=== PATIENT | male | born 1950 | race Caucasian/White ===

== ENCOUNTER 2018-10-16 11:24 | Inpatient (IN) | payer OTHER ==
[~2018-10-16] VITALS: Ht 182.9 cm; Wt 93.0 kg
--- NOTE | ~2018-10-16 | D ---
[facility] [place] [address] DISCHARGE SUMMARY Name: NIURKA REHMAN Room #: 525B-B DIS IN M.R.#: [id number] Admission: 10/16/18 ������������������ Attend Phys: Malcolm Lee DO Discharge: 10/28/18 ������������������ Date of : 54 Report #: [id number] THIS REPORT FOR: //name// CC: Malcolm Lee [facility] unknown DATE OF SERVICE: 10/28/2018 INPATIENT PSYCHIATRIC DISCHARGE SUMMARY ATTENDING PHYSICIAN: Malcolm Lee DO. PAID INTERNSHIP: Tk Corrigan M.D. DISCHARGE DIAGNOSES: Major neurocognitive disorder, unspecified etiology, without behavioral disturbance; schizophrenia, much improved. DISCHARGE PLAN: Discharging to the [facility] for memory care. DIET: Diet, I believe, is regular. ACTIVITY LEVEL: As tolerated; however, PT and OT were encouraged for the patient as he did make significant gains. DISCHARGE MEDICATIONS: The patient's discharge medications are as follows: Morphine sulfate extended release 15 mg p.o. b.i.d., Oxycodone IR 5 mg p.o. 4 times a day p.r.n. pain level 6/10, haloperidol 7.5 mg p.o. b.i.d. for psychosis, Lasix 20 mg p.o. daily for edema primarily, docusate 100 mg p.o. b.i.d. for bowel motility, cyanocobalamin 100 mcg p.o. daily for supplementation and folic acid 1 mg p.o. daily. The patient can take Systane eye drops 1 drop ophthalmic every 6 hours p.r.n. for dry eyes and senna 8.6 mg p.o. b.i.d. for bowel motility. REASON FOR ADMISSION: Refusal of cares, worsening psychosis, concern for dementia. HOSPITAL COURSE: The patient was admitted to the Geriatric Psychiatry Unit. His [facility] Mental Status Examination was in the low teens. The patient had difficulty performing some ADLs. He clearly had a superior intelligence. However, he currently is lacking insight into a number of his care needs and even how he was obstructing his getting care. The patient was already under the care of this guardianship. The guardian, Chicho, who is a finance attorney in the area wanted us to find a new placement. The patient was accepted at the [facility] there in the memory care. [address] [address] DISCHARGE SUMMARY Name: NIURKA REHMAN Room #: 525B-B [facility] IN M.R.#: [id number] Admission: 10/16/18 ������������������ Attend Phys: Malclom Lee DO Discharge: 10/28/18 ������������������ Date of : 54 Report #: [id number] LABORATORY DATA: Laboratories this admission, CBC was grossly normal, except on 10/28/2018, H and H of 11.4 and 34.7, white count 6.7 and platelet count 238,000. BMP within normal limits, except magnesium slightly high at 2.6 on 10/28/2018. Anion gap low at 6. Estimated GFR is 97. Toxicology showed positive for benzodiazepines and opiates, which was expected. Urinalysis was grossly normal with 1+ protein, few bacterial cells. His urine creatinine was 130.3 and urine total protein 40.17, which is high. The patient does have some evidence of chronic renal disease. PHYSICAL EXAMINATION: VITAL SIGNS: On the day of discharge, temperature 36.9, pulse 78, respirations 16 and BP 125/77. His weight supposedly is 92.99 kilos. GENERAL: Well-developed male seated in the chair, tries to avoid engaging in activities. MENTAL STATUS EXAMINATION: This is a well-developed, well-nourished, disheveled male, appearing at least stated age. Attention fair. Concentration fair. Speech normal rate and normal tone. Thought process linear and goal oriented. Thought content focused on getting his needs met. No psychomotor retardation. No psychomotor agitation. Denied SI, HI. Some helplessness and hopelessness. Insight limited. Judgment limited. Fund of knowledge above average. PROGNOSIS: Prognosis for this patient is guarded given the neurodegenerative disease on top of schizophrenia history. This prognosis was discussed with the guardian. ��������������������������������������������� ���������������������������������������� By: ��������������������������������������������� [id number] Malcolm Lee, DO /nt
[2018-10-16 11:25] VITALS: BP 141/90
--- NOTE | 2018-10-16 11:30 | NUR ---
PT CHATS EASILY ABOUT UNRELATED TOPICS. PT ASKED THIS PANEL ASSEMBLER IF HE COULD PLACE A CHARACTER REFRENCE IN HIS ER CHART. PT ALSO SPEAKS ABOUT CALLING THE AUTHORITIES ON A HOSPITAL LAST TIME HE WAS IN BECAUSE THEY TESTED HIM FOR STDS AND THAT IT WAS ILLEGAL. THOUGHTS ARE ORGANIZED
[2018-10-16] MEDS ORDERED: MIRALAX17 GM PO (13:08)
[2018-10-16] MEDS ORDERED: MILK OF MA400 MG/5 M PO (13:08)
[2018-10-16] MEDS ORDERED: MS CONTIN15 MG PO (13:09)
[2018-10-16] MEDS ORDERED: SENNA8.6 MG PO ×2 (13:11→21:20)
[2018-10-16] MEDS ORDERED: OXYCODONE HCL10 MG PO (13:11)
[2018-10-16 13:12] LABS: HEMATOCRIT 40.2 % (42.0-52.0); HEMOGLOBIN 13.4 gm/dL (14.0-18.0); MCH 28.3 pg (26.0-34.0); MCHC 33.3 g/dL (28.0-37.0); MCV 84.9 fL (80.0-100.0); RBC 4.74 mil/uL (4.50-6.00); RDW 13.8 % (10.5-14.5); WBC 7.6 thou/uL (4.0-11.0)
[2018-10-16] MEDS ORDERED: SYSTANE ULTRA 010 ML OPHTHALMIC (13:12)
[2018-10-16] MEDS ORDERED: VALIUM5 MG PO (13:13)
[2018-10-16 13:14] LABS: URINE BLOOD NEGATIVE (Negative); URINE CLARITY CLEAR; URINE COLOR YELLOW; URINE GLUCOSE-RANDOM* NEGATIVE (Negative); URINE KETONES NEGATIVE (Negative); URINE LEUKOCYTES-REFLEX NEGATIVE (Negative); URINE NITRITE-REFLEX NEGATIVE (Negative); URINE PROTEIN (DIPSTICK) 1+ (Negative)
[2018-10-16 13:19] LABS: ICTOTEST (BILI CONFIRMATORY) Negative (Negative); URINE BILIRUBIN NEGATIVE (Negative)
[2018-10-16 13:20] LABS: CALCIUM 9.1 mg/dL (8.5-10.1); CREATININE 0.9 mg/dL (0.7-1.3); POTASSIUM 4.3 mmol/L (3.5-5.1)
[2018-10-16 13:21] LABS: AMP/METHAMP Negative (Negative); BARBITURATES Negative (Negative); BENZODIAZEPINES POSITIVE (Negative); COCAINE Negative (Negative); METHADONE Negative (Negative); OPIATES POSITIVE (Negative); PCP Negative (Negative)
[2018-10-16 13:25] LABS: SQUAMOUS 4-10 Moderate /LPF (0-3)
[2018-10-16 13:26] LABS: BACTERIA-REFLEX 1-9 Few /HPF (None Seen); CASTS None Seen /LPF (None Seen); CRYSTALS None Seen /LPF (None Seen); URINE RBC 0-2 Rare /HPF (0-2); URINE WBC-REFLEX 0-5 Rare /HPF (0-5)
[2018-10-16 18:14] VITALS: BP 136/78
[2018-10-16 18:25] VITALS: BP 132/99
--- NOTE | 2018-10-16 18:37 | NUR ---
180: Admitted to room 525-B via w/c from ER transported from [facility], with dx of schizophrenia, delusions,etoh encephalopathy. Upon arrival to unit, pt refuses to transfer from w/c to bed, returned to DR GUERRA done, pt refuses to give cell phone to nurse, pt states "I need it to call other attorneys." DPOA paperwork on chart from transfer. Security here to assist with removing cell phone and sending it to security. VS= [id number], SAO2 on RA 96%, B/P= 132/99. Report to oncoming shift.
--- NOTE | 2018-10-16 22:38 | NUR ---
PT IN DAYROOM AT [facility]. ALLOWED STAFF TO DO PHYSICAL ASSESSMENT. CONFUSED AND UNABLE TO PROVIDE ACCURATE PERSONAL HISTORY. PREOCCUPIED WITH BELIEF HE HAS MUSCULAR DYSTROPHY, AND IS "GOING TO ". ASSISTED PT TO BED, ALTHOUGH HE WAS RESISTANT TO ALLOWING US TO HELP HIM TO BED. WILL ASSESS SKIN WHEN ABLE. VSS. PT CURRENTLY RESTING QUIETLY.
--- NOTE | 2018-10-16 23:05 | NUR ---
IDENTIFIED WOUND AROUND COCCYX. BLACKENED SCAB. PHOTOS TAKEN AND ON THE CHART.
[2018-10-17 00:13] VITALS: BP 132/99
[2018-10-17 00:20] VITALS: BP 132/99
--- NOTE | 2018-10-17 03:36 | NUR ---
PT RECEIVED HYDROCODONE AT 2400, SCHEDULED. WILL RECEIVE DOSE Q6HRS. PT WILL ALSO RECEIVE MORPHINE SULFATE ER TABLET BID, FOR CHRONIC PAIN. ADVISED OF MED SCHEDULE FOR TODAY. RESTING QUIETLY AT THIS TIME.
--- NOTE | 2018-10-17 09:29 | NUR ---
ASSUMED PATIENT CARE AT 0730 A.M. PATIENT IN BED, FACE COVERED WITH BLANKETS. C/O NAUSEA, N.P. ORDERED ZOFRAN PO Q 8HRS PRN. NURSE ATTEMPTED TO ADMINISTER ZOFRAN SHORTLY AFTER, AT 0830; PATIENT REFUSED, CONCERNED "THAT IT WILL MAKE ME SICK." NURSE WAS UNABLE TO ENCOURAGE PATIENT THAT MEDICATION WOULD HELP HIM, NOT HURT HIM. PATIENT REPLIED "IT MIGHT." LAB BEING DRAWN AT THIS TIME.
[2018-10-17 11:16] LABS: FOLIC ACID 5.4 ng/mL (8.6-58.9)
[2018-10-17 11:33] LABS: ALBUMIN 3.5 g/dL (3.4-5.0); DIRECT BILIRUBIN 0.2 mg/dL (<0.1-0.3); TOTAL BILIRUBIN 0.7 mg/dL (<0.1-1.0)
[2018-10-17 14:06] VITALS: BP 139/94
--- NOTE | 2018-10-17 17:28 | NUR ---
PATIENT GOOTTEN UP IN W/C SHORTLY PRIOR TO LUNCH. PATIENT TOLD THAT HE SHOULD SIT UP, RATHER THAN LYING IN BED ALL DAY, R/T PREVIOUS SERIOUS PRESSURE WOUND. PATIENT GIVEN HIS SCHEDULED PAIN MEDICATION OXYCODONE, WAITING FOR HIS 1800 DOSE AT THIS TIME. OXYCODONE WILL BE ADMINISTERED AT 1800, FOLLOWED BY BEING LAID DOWN IN BED.
--- NOTE | 2018-10-17 18:08 | NUR ---
PATIENT'S WOUND ASSESSED BY THIS NURSE AT 1800, WHEN LYING PATIENT DOWN IN BED; OBSERVED SCABBED-LOOKING AREA AT COCCYX. WOUND CARE CONSULT ALREADY DOCUMENTED.
[2018-10-17 20:02] VITALS: BP 135/92
[2018-10-18 01:13] VITALS: BP 135/92
--- NOTE | 2018-10-18 03:44 | NUR ---
PT REMAINS IN BED AT [facility]. CONTINUES TO MAKE EXCUSES FOR REFUSING PHYSICAL CARE. REMAINS SUSPICIOUS REGARDING MEDS. MUST BE SHOW AND TOLD WHAT THEY ARE BEFORE HE WILL TAKE THEM. TURNED Q2H TO KEEP PT OF OF BOTTOM THROUGH THE NIGHT. COOPERATIVE WITH POSITION CHANGES. SLEPT WELL THROUGH THE NIGHT.
[2018-10-18 10:00] VITALS: BP 132/93
--- NOTE | 2018-10-18 10:42 | HC ---
[facility] [place] [address] CONSULTATION Name: NIURKA REHMAN Room #: 525B-B ADM IN M.R.#: [id number] Admission: 10/16/18 ������������������ Attend Phys: Malcolm Lee DO Discharge: ������������������ Date of : 54 Report #: [id number] THIS REPORT FOR: //name// CC: Malcolm Lee FAM unknown HOSPITALIST CONSULTATION NOTE REASON FOR THE CONSULTATION: Medical management. CONSULTING PHYSICIAN: Dr. Lee. REASON FOR PRESENTATION: Altered mental status. HISTORY OF PRESENT ILLNESS: Those were obtained from the history as the patient is currently having flight of ideas, is not able to provide me with the history. He was brought from [facility] facility because of noncompliance with medical care. The patient would not allow the medical staff to take care of him. However, when the patient presented to the Emergency Room, he completely denied the above. He has no active symptoms to report to me, however he had significant flight of ideas and was talking about his business associates, his inheritance. In terms of medical problem, it does look like that the patient is known to have delusional disorders, schizoaffective disorder. He is maintained on narcotics. No other comorbid conditions. FAMILY HISTORY: Unobtainable given the patient's current mental status. PAST MEDICAL AND SURGICAL HISTORY: 1. Pressure ulcers. 2. Schizoaffective disorder. 3. Delusional disorder. MEDICATIONS: 1. Diazepam. 2. Oxycodone. 3. Morphine. ALLERGIES: None is listed. SOCIAL HISTORY: Resides in a nursing facility. No reported drug or alcohol abuse. REVIEW OF SYSTEMS: Obtained from the patient, however I am not sure how accurate is that. GENERAL: No fever or chills. CARDIOVASCULAR: No chest pain or palpitation. PULMONARY: No cough or hemoptysis. [facility] [address] [place] [address] CONSULTATION Name: NIURKA REHMAN Room #: 525B-B ADM IN M.R.#: [id number] Admission: 10/16/18 ������������������ Attend Phys: Malcolm Lee DO Discharge: ������������������ Date of : 54 Report #: [id number] GASTROINTESTINAL: No nausea or vomiting. GENITOURINARY: No frequency or urgency. NEUROLOGIC: No seizure activities. PHYSICAL EXAMINATION: GENERAL: He is alert. VITAL SIGNS: Blood pressure is 132/99. Temperature 36.5. HEAD AND NECK: No jugular venous distention. CHEST: No crackles. CARDIOVASCULAR: Regular, with no rub. ABDOMEN: Soft, nontender. EXTREMITIES: Lower extremities: +2 edema. ASSESSMENT AND IMPRESSION: 1. Schizoaffective disorder. 2. Delusional disorder. 3. Lower extremity edema. PLAN: 1. We will defer the management of his ongoing psychiatric issues to the primary team. 2. He does have significant lower extremity edema, which will need to be investigated. 3. Low salt diet. 4. Local measures for his edema. 5. Not really sure if he would benefit from diuretics, however we will keep that in our mind. 6. Albumin is pending. 7. UA with +1 protein, for which we will evaluate for urine protein to creatinine ratio. 8. Marginally elevated diastolic blood pressure and will watch for now. ��������������������������������������������� <ELECTRONICALLY SIGNED> ���������������������������������������� By: Gus Hayden MD ��������������������������������������������� 10/18/18 [id number] Gus Hayden MD /nt
--- NOTE | 2018-10-18 11:26 | NUR ---
AT APPROXIMATELY 0850, PATIENT OBSERVED ACTIVILY SEIZING WHILE SITTING IN W/C AT D.R. TABLE, AWATING BREAKFAST. BOTH N.P. AND ONE OF THE HOSPITALIST, DR. GILLILAND, WERE PRESENT ON THE UNIT. NURSE WAS IN THE MEDICATION ROOM AT THAT TIME, NOTIFIED BY ANOTHER NURSE, GITA, THAT NURSE WAS NEEDED IN THE DINING ROOM. DR. GILLILAND MONITORED PATIENT WHILE PRESENT; BLOOD PRESSURE ALREADY BEING TAKEN TAKEN BY HEMANTH BENITES. BP 176/104 AT THAT TIME. PATIENT TAKEN BACK TO HIS ROOM. PATIENT GIVEN KEPRA, SCHEDULED DOSE AFTER BEING TAKEN TO HIS ROOM AND ABLE TO SWALLOW MEDICATION, CRUSHED AND IN PUDDING. BED ALARM SET BEFORE LEAVING ROOM. AFTER ABOUT 20-30 MINUTES, PATIENT WANTED TO GET UP; TAKEN TO D.R. IN W/C BY STAFF. BEHAVIOR IS WDL, NO FURTHER SEIZURE ACTIVITY TO DATE THIS SHIFT. TABLEAU REPORT DEVELOPER, ALANA, NOTIFIED OF PATIENT'S SEIZURE ACTIVITY. CONTINUE TO MONITOR.
--- NOTE | 2018-10-18 11:37 | NUR ---
PATIENT UP FOR BREAKFAST, COMPLIANT WITH MOST OF A.M. MEDICATIONS. HOWEVER, ONLY TOOK 1/2 OF SENNA, SAYS IF HE TAKES THAT PARTICULAR MEDICATION, "IT GOES ALL OVER THE PLACE." ALSO, REFUSED VALIUM 2.5 MG, SAID THAT IT WAS DROPPED; NURSE HAD NOT DROPPED MEDICATION ON THE FLOOR, JUST ON THE TOP OF COMPUTER. PATIENT ATTENDED MORNING S.W. GROUP. ASKED TO LIE DOWN AFTER GROUP; HOWEVER, PATIENT TOLD THAT HE NEEDS TO SIT UP UNTIL AFTER LUNCH. FLAT AFFECT, DEPRESSED MOOD, STILL EXHIBITING PARANOID BEHAVIOR WITH MEDICATIONS, NEEDING TO HAVE EACH MED EXPLAINED, EVEN THOUGH NOTHING NEW FROM DAY BEFORE. CONTINUE TO MONITOR.
--- NOTE | 2018-10-18 17:39 | NUR ---
PATIENT REFUSED 1800 OXYCODONE 10 MG, STATING THAT HE GOT DIZZY WHEN HE TOOK THE OXYCODONE AT 0600 A.M. NURSE WAS UNSUCCESSFUL IN ENCOURAGING HIM TO TAKE PAIN MEDICATIONS. PATIENT STATED THAT HIS PAIN IN HIS "RIGHT LOWER BACK" WAS "8." WANTS TO BE DISCHARGED.
--- NOTE | 2018-10-18 19:33 | NUR ---
ASSUMED CARE @ 1900, IN ROOM IN BED. WILL CONTINUE TO MONITOR Q 4HOURS FOR SAFETY.
[2018-10-18 19:36] VITALS: BP 107/70
--- NOTE | 2018-10-18 20:15 | NUR ---
IN BED, EYES CLOSED, OPENS EYES TO VOICE. HRRR, ABD NORMO X 4 1 WOULD NOT COOPERATE WITH ASSESSMENT OF LUNG SOUNDS. IS SLEEPY AND ONLY SAYS, IM COLD. COVERED UP AND PT RETURNED TO SLEEP. BED IN LOW POSITION 3 RAILS UP. WILL CONTINUE OT MONITOR Q 12 MINUTES FOR PT SAFETY.
--- NOTE | 2018-10-18 23:36 | NUR ---
REFUSED HS MEDICATION, SPITTING OUT PO TABLETS. VERBALIZED THAT THE DECIEVER WAS TRYING TO CONVINCE HIM TO TAKE MEDICINE. REPORTS THAT HE IS GOING TO A VIOLENT IN 10 DAYS. REASURANCE PROVIDED, PT WOULD NOT DRINK WATER OR SWOLLOW MEDICATION. BED IN LOW POSITION, 3 RAILS UP, BED ALARM ON. WILL CONTINUE TO MONITOR Q 12 MINUTES FOR PATIENT SAFETY.
--- NOTE | 2018-10-19 05:51 | NUR ---
SLEPT 8 HOURS OVERNIGHT. COMPLIANT WITH 0600 MEDICATION.
--- NOTE | 2018-10-19 09:06 | EKG ---
[place] [address] [facility] [place] [address] ELECTROCARDIOGRAM REPORT Name: NIURKA REHMAN Room #: [facility] ADM IN M.R.#: [id number] ������������������ Admission: 10/16/18 ������������������ Attend Phys: Malcolm Lee DO Discharge: ������������������ Date of : 54 Report #: [id number] ����������������������������������������������������������������� [id number] THIS REPORT FOR: //name// [facility] Test Date: 2018-10-17 Test Time: 09:14:13 Pat Name: NIURKA REHMAN Department: Room: [facility] Gender: M Foreign Service Officer: IVORY : 1950 Requested By: Tova Hickey Order Number: [id number] MD: Garret Elizabeth Measurements Intervals Lucinda Rate: 82 P: 63 NM: 196 QRS: 45 QRSD: 145 T: -23 QT: 388 QTc: 453 Interpretive Statements Sinus rhythm Poor R-wave progression Artifact in multiple lead(s) No previous ECG available for comparison Electronically Signed On 10-19-2018 9:06:07 CDT by Garret Elizabeth [email or web address] ��������������������������������������������� <ELECTRONICALLY SIGNED> ���������������������������������������� By: Garret Elizabeth MD, [facility] ��������������������������������������������� 10/19/18905 3 3 Garret Elizabeth MD, FAC /EPI
--- NOTE | 2018-10-19 12:49 | NUR ---
WOUND CONSULT; ASSESSMENT OF THE BUTTOCKS WOUND; AN OPEN AREA WITH SCARRING. THIS PATIENT DESCRIBED A SIGNIFICANT HEALING PROCESS USING VAC THERAPY. NO S/S OF INFECTION AT THIS TIME AND PATIENT DENIES PAIN. RECOMMENDATIONS; AQUACEL AG TO WOUND BED DAILY/PRN, COVER WITH A BOARDERED FOAM DRESSING DAILY/PRN DISCUSSED WITH ANDRA
--- NOTE | 2018-10-19 13:08 | NUR ---
PT ORDER RECIEVED TO EVALUATE W/C--DIGGING INTO PATIENTS MID BACK. PT SPOKE W/ DR. KUMAR WHO CLARIFIED FOR PT TO ONLY ASSESS WHEELCHAIR AND NOT TO COMPLETE PT EVALUATION AT THIS TIME. PT SPOKE WITH Pt, AND STORE HAND AND IT IS UNCLEAR WHETHER THE WHEELCHAIR Pt HAS BELONGS TO Pt, ALTHOUGH IT APPEARS THAT IT DOES OR SOMEONE PROVIDED Pt WITH THE WHEELCHAIR PRIOR TO ARRIVAL TO HOSPITAL. Pt REPORTING DISCOMFORT AT MIDBACK, THE BACK OF THE WHEELCHAIR IS SAGGING DUE TO WEAR/AGE. PT ADJUSTED THE WHEELCHAIR BACK PADDING IT HAD SLID DOWN AND PROVIDED A PILLOW FOR COMFORT, Pt REPORTED IMPROVEMENT WITH PLACEMENT OF PILLOW. Pt MAY BENEFIT FROM NEW WHEELCHAIR BACK TO PROVIDE BETTER SUPPORT OR A TALLER BACK WHEELCHAIR.
--- NOTE | 2018-10-19 16:04 | NUR ---
FELIX met with pt cherise turner pt care. 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 Chicho mention that pt was evicted from several nursing facilities due to his behavior. Chicho mention that [facility] is not a good NF for him, and would like to have refferal to sent to another facility. SW provided a referral to [facility] [place]. SW will follow-up with the guardian, and pt upon d/c.
--- NOTE | 2018-10-19 19:22 | NUR ---
CONSTRICTED AFFECT AND MINIMAL INTERACTION WITH PEERS THIS SHIFT. 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
[2018-10-19 20:02] VITALS: BP 129/89
--- NOTE | 2018-10-19 22:35 | NUR ---
NURSES NOTE - ACCPETED CARE AT 1900, PATIENT IN ROOM UPON ASSESSMENT WITH EYES CLOSED THAT SPONTANEOUSLY OPENED TO THIS NURSES VOICE. HE BEGAN STATING HOW HE SEES PREMONITIONS IN THE FUTURE THAT ARE TRUE AND SOON 'I WILL A VIOLENT , IT WONT BE ANYTHING LIKE A CODE HERE OR SOMETHING.' HE ALSO REPORTED THAT HE IS CONFINED AND 'EVERY PLACE LIKE THIS SHOULD BE CHARGED WITH VIOLATING HUMAN RIGHTS.' HE SEEMS VERY OCCUPIED WITH FEELINGS OF PERSECUTION AND . MEDICATION COMPLIANT THIS EVENING. WILL MAINTAIN ALL PRECAUTIONS FOR SAFETY AND TURN Q2 HOURS ORDERED.
[2018-10-20 08:15] VITALS: BP 122/80
--- NOTE | 2018-10-20 10:27 | NUR ---
[id number]: Report rec from noc shift, care assumed. To via w/c, oriented to person place and time. Cooperative with staff, feeds self, takes meds whole w/o difficulty, appetite good. Shower given with assist of staff, pt cooperative.
[2018-10-20 20:07] VITALS: BP 121/69
--- NOTE | 2018-10-20 22:55 | NUR ---
NURSES NOTE - ASSUMED CARE AT 1900, HE IS ALERT AND ORIENTED 2-3X RELATED TO NOT KNOWING THE DATE. UPON FIRST ENCOUNTER WITH PATIENT HE WAS IN BED WITH EYES OPEN. PAN CLEANER'S HELPED PATIENT OUT OF BED TO THE DAY ROOM. HE INTERACTED MINIMALLY IN THE DAY ROOM THEN ASKED TO RETURN TO HIS ROOM. HE QUESTIONED SEVERAL TIMES WHY HE NEEDS TO PARTICIPATE IN THE GROUP. THIS NURSE PROVIDED REINFORCEMENT TO WHY. HE APPEARS WITH A DISHEVELED APPEARANCE, ENCOURAGED ADLS. IT WAS REPORTED HE SHOWERED THIS MORNING. HE REPORTS HAVING HIS LAST BM ON 10/19/18. HE CONTINUES TO BE FOCUSED ON DYING AND THAT THERE IS A PROPHECY INVOLVED SOMEHOW. HE DENIES HI, REPORTS DEPRESSION ET ANXIETY. HE APPEARS TO BE FOCUSED ON WHEN HE RECEIVES PAIN MEDICATION, WHICH IS GIVEN ORDERED. HE ALSO REQUESTED AN ENEMA, THIS NURSE EDUCATED HIM ON THE EFFECTS OF SENNA. NO OTHER DISTRESS NOTED. WILL CONTINUE TO INSURE SAFETY AT ALL TIMES.
[2018-10-21 08:00] VITALS: BP 156/94
--- NOTE | 2018-10-21 08:15 | NUR ---
TRIED TO HAVE PATIENT VOID IN URINAL, PT STATED HE COULDN'T AT THIS TIME IN FRONT OF AUDIENCE. GAVE PT SOME TIME TO VOID, PT UNABLE TO AT THIS TIME.
[2018-10-21 08:30] VITALS: BP 156/94
--- NOTE | 2018-10-21 08:30 | NUR ---
PT IN BED, PT GETTING A BED BATH BY NURSE AND AIDE. PT STATED HE WANTED A FLEETS ENEMA DUE TO NO BM X3 WEEKS. PT HAS BOWEL SOUNDS, ABD FIRM IN MIDDLE. PT STATED HE WANTED TO USE URINAL ALSO. PT URINAL PLACED, PT STATED HE CAN'T GO WITH AN AUDIENCE. PT HAS DRESSING TO COCCYX THAT IS INTACT. PT LUNGS CLEAR. PT NEEDED ASSISTANCE WITH TRANSFERS. PT ABLE TO BEAR WEIGHT TO FEET AND PIVOT. PT STATED THAT HIS LEFT FOOT HAS SOME NUMBNESS AND TINGLES. LOWER PEDAL IS +2 PITTING EDEMA, +1 PITTING EDEMA TO LOWER EXT, BILATERALY.
--- NOTE | 2018-10-21 09:17 | NUR ---
ADM MIRALAX 17GM POWDER IN APPLE SAUCE PER REQUEST.
--- NOTE | 2018-10-21 12:01 | NUR ---
Nutrition: Pt admitted with schizoaffective disorder to [facility] unit and seen due to wound risk. This is an open area with scarring on sacrum per wound care. Pt had reported prior need for wound vac. Weights reportedly stable per pt and he is eating well. Discussed supplements with pt and he is agreeable to ensure max once daily. Place as low nutrition risk.
--- NOTE | 2018-10-21 13:07 | NUR ---
ADM FLEETS ENEMA AT THIS TIME. PT STATED HE HASN'T HAD BM FOR 3 WEEKS, A GOOD ONE. CHART STATED LAST BM 10/20.
--- NOTE | 2018-10-21 14:21 | NUR ---
RECHECKED FOR BOWEL MOVEMENT. PT HAD SOME LIQUID OUT AND SMALL BROWN LIQUID.
--- NOTE | 2018-10-21 16:54 | NUR ---
PT STATED HE HAS NOT HAD BM IN 3 WEEKS. PT REFUSING TO GET UP FOR DINNER. PT HAD SOME MORE LIQUID WITH BROWN LIQUID SMALL AMT ON PAD. PT DID TOLERATED A SIARRA MIST DRINK. PT STATED HE IS NAUSEATED.
--- NOTE | 2018-10-21 17:12 | NUR ---
TRIED TO GIVE MOM FOR COMPLAINTS OF CONSTIPATION. PT REFUSED STATED HE IS AFRAID OF GETTING SICKER.
[2018-10-21 17:33] LABS: PROT/CREAT RATIO 0.1; URINE CREATININE-RANDOM* 130.3 mg/dL; URINE PROTEIN-RANDOM* 14.7 mg/dL (<11.9)
[2018-10-21 19:34] VITALS: BP 136/88
--- NOTE | 2018-10-22 04:55 | NUR ---
HAD MULTIPLE BM TONIGHT, INCONTINENT OF BOTH B/B, MEPILEX DRESSING TO COCCYX INTACT, PERICARE WITH EACH SOILING, CONTINUE TO HAVE BACK AND GENERALIZED PAIN, ON OXY 5 MG QID SCHEDULED AND NOT SEEM TO HELP IT, CONTINUE TO ASK FOR IT, PT ALSO ON MS CONTIN, TOOK MEDS WITH NO ISSUES, BED ALARM ON, PITTING EDEMA BLE, ABLE TO TURN AND ASSIST WITH REPOSITIONING, MONITORED.
[2018-10-22 08:08] VITALS: BP 153/99
--- NOTE | 2018-10-22 13:54 | NUR ---
ASSUMED PT CARE AT 0700 THIS AM. SLEEPY THIS AM AND STATED HE HAD BEEN AWAKE ALL NIGHT HAVING BOWEL MOVEMENTS STATED HE DID NOT WANT TO GET UP FOR BREAKFAST. FLAT AFFECT NOTED WITH SOME AGITATION. ALLOWED PT TO REST IN BED UNTIL 11:[address] INMAN ORDERED PT TO GET OUT OF BED. PT WAS VERY RESISTANT AND DID NOT GIVE ANY EFFORT TO HELP MAX ASSIST TO TRANSFER TO W/C. WILL CONT POC.
[2018-10-22 19:34] VITALS: BP 154/93
--- NOTE | 2018-10-23 00:38 | NUR ---
NURSES NOTE - ASSUMED CARE AT 1900. PATIENT GREETED IN ROOM IN BED WITH EYES OPEN. APPEARS WITH A FLAT AFFECT WHEN INTRODUCING SELF, HAIR WAS DISHEVELED. HE APPEARS TO HAVE GOOD MEMORY RECALL HE STATED 'I KNOW YOU, YOU ARE AGUILA.' THIS NURSE HAD BADGE TURNED BACKWARDS AT TIME. HE MAINTAINS GOOD EYE CONTACT. HE IS CONVERSATIONAL DURING ONE TO ONE, RECOLLECTING MEMORIES OF PAST HOSPITAL STAYS AND EVENTS OF HISTORY. HE COMPLAINED OF PAIN AT 8/10 AND INQUIRED TO WHEN HIS NEXT DOSE OF PAIN MEDICATION WOULD BE AND WHAT KIND. THIS NURSE RESPONDED IN ABOUT AN HOUR. NEW ORDER WAS PLACED TO GIVE HALDOL 7.5MG AT 2330. THIS NURSE ADMINISTERED MEDICATION ORDERED WITH NO ISSUES FROM PATIENT. HE DENIES SI HI WELL HALLUCINATIONS. NO INTERNAL STIMULI NOTED. HE DOES REPORT FEELINGS OF DEPRESSION BUT DENIED ANXIETY. HE DENIED MEDICAL CONCERNS WITH NO S/S OF DISTRESS. NURSING WILL MAINTAIN ALL PRECAUTIONS TO ENSURE SAFETY AT ALL TIMES, WELL ENCOURAGE Q2 HOUR REPOSITIONING.
--- NOTE | 2018-10-23 07:54 | NUR ---
0700: Report rec from noc shift, care assumed. Resting in bed, awakens readily to verbal stimuli. No distress noted.
[2018-10-23 08:46] VITALS: BP 138/83
[2018-10-23 19:33] VITALS: BP 105/69
--- NOTE | 2018-10-23 21:35 | NUR ---
Care assumed of patient at 1900: Patient alert and oriented x3. Patient disoriented on situation. Patient believes he is here because CECE Decker, is an amateur doctor. Speech is slow, fussy at times. 2+ pitting edema to bilateral lower extremities. Patient denies any SI/HI at this time. No signs of AH/VH at this time. Patient took medications whole without difficulty. Patient provided urinal at bedside and educated to use. Dressing to buttock is clean, dry and intact. Patient encouraged to change positions q2 hours and PRN.
--- NOTE | 2018-10-24 02:29 | NUR ---
ASSUMED CARE @ 2230. IN BED, EYES CLOSED, RESPIRATIONS EVEN AND UNLABORED. AWAKENED @ 23:45 TO ADMINISTER SCHEDULED 0000 MEDICATION FOR BACK PAIN. RATED PAIN @ 6/10. WILL CONTINUE TO MONITOR Q12 MINUTES FOR PT SAFETY.
--- NOTE | 2018-10-24 07:26 | NUR ---
SLEPT 9 HOURS TOTAL. AROUSABLE BY VOICE @ 23:45 AND 05:45 FOR SCHEDULED PAIN MEDICATION ADMINISTRATION.
[2018-10-24 08:17] VITALS: BP 118/86
--- NOTE | 2018-10-24 09:20 | NUR ---
[id number]: Report rec from noc shift, care assumed. Pt given darvin-care, brief applied, transferred from bed to w/c with staff assist x2, pt full wt bearing, attempts to assist with transfer. To DR via w/c, feeds self with set-up assistance, appetite fair, consumed 50% of meal. Takes meds whole w/o swallowing problems noted, rates back pain "8" on 0-10 number scale. Attending 0900 group therapy, has difficulty staying focused, participation minimal. Pleasant with staff and others, denies SI or hallucinations. 2+ edema noted to BLE, pt educated and encouraged to elevate BLE. Fall risk interventions in place: yellow socks, yellow fall wrist band, bed alarm while in bed, q 12 min monitoring, frequent incont. care. Pt oriented to name and place, denies the need to be here.
[2018-10-24 19:45] VITALS: BP 117/85
[2018-10-25 03:33] VITALS: BP 117/85
[2018-10-25 10:17] VITALS: BP 136/86
--- NOTE | 2018-10-25 10:35 | HC ---
[facility] [place] [address] CONSULTATION Name: NIURKA REHMAN Room #: 525B-B ADM IN M.R.#: [id number] Admission: 10/16/18 ������������������ Attend Phys: Malcolm Lee DO Discharge: ������������������ Date of : 54 Report #: [id number] THIS REPORT FOR: //name// CC: Malcolm Lee FAM unknown DATE OF SERVICE: 10/22/2018 CLINICAL PRESENTATION: The patient is a 68-year-old male admitted to the [facility] Unit at [facility] for evaluation and treatment of a deterioration in functioning that included medical noncompliance and mental status changes. The patient has been living in an assisted living facility. His behavior was described as combative and noncompliant with medical management. Pressure ulcers have developed from lack of activity. Medical records indicate that he has a guardian that has been providing assistance in the management of his medical and health care needs. 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 He carries a diagnosis of schizoaffective diosrder with intermittient psychotic episodes. The patient has a history of unsuccessful placements in several skilled and residential care nursing facilities. He is reported to have been evicted from the facilities due to behavioral disorder. Patient was minimally cooperative with my interview. He stated that he does not no children. He reports that he has been an parts cleaner, but was vague in providing any details about his practice, his family origin, psychosocial or medical. Patient was tangential throughout the interview. Frustration with his guardian was reported. TECHNIQUES UTILIZED: Clinical interview, review of medical records, staff consultation and behavioral observations, attempted administration of the MMSE 2. EXAMINATION FINDINGS: He was seen on two separate occasions. His cooperation was poor. He was interviewed while laying prone in his bed, not wanting to transfer to a sitting position. He was essentially non compliant with the neurobehavioral status exam. He was not able to described the events surrounding his hospitalization or the purpose of his current treatment. While personable, he has a paranoid attitude and was concerned about the purpose of my assessment and the way in which the information would be use. Cognitive deficits are suggested by the variability in his ability to describe [facility] [address] [place] [address] CONSULTATION Name: NIURKA REHMAN Room #: 525B-B ADM IN M.R.#: [id number] Admission: 10/16/18 ������������������ Attend Phys: Malcolm Lee DO Discharge: ������������������ Date of : 54 Report #: [id number] recent events. He lacks insight into his medical condition and tends toward confabulation. While he appears alert and oriented, decreased insight into cognitive and behavioral symptoms as well as his medical condition places him at an increased safety risk. His use of narcotic and sedating medication may also contribute to variability in cognitive functioning. While a structured neurobehavioral status exam could not be administered because of his noncompliance. The patient does present with tangential ideation, and flight of ideas. He likely becomes confabulatory when unable o respond specifically to questions. No overt delusions, auditory or visual hallucinations are reported. He does not present with an aphasia. This type of presentation suggests features of paranoid personality, bipolar and schizoaffective disorder. Neurocognitive disorder is also likely. RECOMMENDATIONS: The patient requires 24-hour care along with assistance in management of medication, finances, and nutrition. Continue use of a guardian to assist in decision making is necessary. He may benefit from psychotherapy to assist with recognition of deficits and strategies to improve compensation for deficits. Additionally, his oral hygiene appears very poor and should also be addressed. I attempted to meet twice with the patient in order to obtain cooperation in a more formal assessment. Follow up neuropsychological testing as an outpatient if his compliance improves will assist with diagnosis and treatment planning. Thank you very much for allowing me to provide the consultation on this patient. ��������������������������������������������� <ELECTRONICALLY SIGNED> ���������������������������������������� By: Valentin Cobb, PhD ��������������������������������������������� 10/25/18 1035 1648 0150 Valentin Cobb, PhD /nt
--- NOTE | 2018-10-25 12:29 | NUR ---
ASSUMED CARE OF PATIENT AT 0700, PATIENT CALM, COOPERATIVE, FLAT AFFECT. STEFFEN CARE GIVEN, WOUND DRESSING CHANGED TODAY, PATIENT STATES PAIN IS CONSTANT, PAIN MEDICATION GIVEN AT SCHEDULED. PATIENT UP IN WHEELCHAIR WITH 2 ASSIST AND IN BREAKROOM. WILL CONTINUE TO MONITOR FOR SAFETY.
--- NOTE | 2018-10-25 15:24 | NUR ---
FELIX sent weekend updates to [employer] [phone]
[2018-10-25 20:55] VITALS: BP 120/76
--- NOTE | 2018-10-25 22:31 | NUR ---
ASSUMED CARE OF THE PT AT 1900 PM. 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 ALERT ET ORIENTED X 3. MAKES NEEDS KNOWN. TOOK HIS HS MEDICATIONS WITHOUT ANY DIFFICULTY. HEART RATE REGULAR, LUNGS CLEAR BILATERALLY, RESP., EVEN, AND UNLABORED. +BS HEARD IN ALL 4 QUADRANTS. THE PT IS OBESE. DRESSING C/D/I TO HIS BUTTOCKS. C/O BACK PAIN, MEDICATED WITH SCHEDULED PAIN PILL. REMAINS ON 12 MINUTE CHECKS FOR HIS SAFETY.
--- NOTE | 2018-10-26 06:42 | NUR ---
THE PT SLEPT 7.6 HOURS LAST NIGHT.
[2018-10-26 08:23] VITALS: BP 121/81
--- NOTE | 2018-10-26 10:02 | NUR ---
ASSUMED CARE AT 0700. PATIENT IS ALERT TO PERSON. PATIENT MANZANO'S, SUPERVISOR GREEN END DEPARTMENT ARE EQUAL. LUNGS ARE CLEAR. ABD IS SOFT WITH BSX4. PATIENT IS INCONTINENT IN HIS BRIEF. PATIENT HAS 2+ EDEMA IN HIS LOWER EXTREMITIES. REVERSER NOTIFIED. FALL AND SAFETY PROTOCOLS IN PLACE. UP IN W/C TO DINING ROOM. PATIENT IS COMPLIENT WITH MEDS. PATIENT C/O BACK PAIN OF 7. MEDICATED WITH SCEDULED PAIN MED. PATIENT IS COMPLIANT WITH ATTENDING GROUP. WILL CONTINUE TO MONITER.
[2018-10-26 10:09] VITALS: BP 121/81
--- NOTE | 2018-10-26 10:52 | NUR ---
FELIX and Dr. Lee spoke with pt DPOA Chicho concerning medication, and NF placement. Dr. Lee mention that the [facility] require a statement in in DPOA paperwork to indicate the enforcement of medication. Chicho mention that he was not aware of that statement. FELIX mention that pt will have to return to [facility] until the pt find another appropriate placement. Dr. Lee mmention that pt will be diagnosed with Major Neurocognitive Disorder. Chicho wanted to know if the pt will be skillable for PT or OT. FELIX mention that the pt is not able to ambuluate according to PT or OT. Chicho mention that he will have another facility that he will like to visit. Chicho will follow-up with FELIX to send a referral.
--- NOTE | 2018-10-26 15:56 | NUR ---
1515 [facility] TO EVAL PATIENT FOR POSSIBLE ADMISSION TO THEIR FACILITY FRIDAY OR FRIDAY.
--- NOTE | 2018-10-26 21:18 | NUR ---
PER VERBAL ORDER FROM DR. KUMAR REMOVE LEONARDO MARISCAL FROM PATIENT R/T AGITATION.
[2018-10-26 22:10] VITALS: BP 116/74
--- NOTE | 2018-10-27 02:14 | NUR ---
NURSES NOTES - ASSUMED CARE AT 1900. PATIENT COMPLAINING OF UNCOMFORTALBE LEONARDO HOSE, DR. KUMAR AWARE AND WAS GIVEN THE OKAY TO REMOVE LEONARDO HOSE. PATIENTS LEGS BILATERALLY HAVE EDEMA NOTED. PATIENT STATES 'THEY HAVE ALWAYS BEEN THIS WAY.' UPON FIRST INTERVIEW WITH PATIENT, IT WAS NOTED THAT PATIENT HAD GOOD MEMORY RECALL, KNOWING THIS NURSES FIRST NAME AND ROLE. HE IS ALERT AND ORIENTED X3 UPON ASSESSMENT. HE APPEARS WITH A FLAT AFFECT. HE REPORTS THAT HE WAS INTERVIEWED TODAY REGARDING A NEW NURSING FACILITY. HE ALSO TOLD STORIES OF HIS PAST. HE DENIED SI HI WELL DEPRESSION ET ANXIETY. HE CONTINUED TO COMPLAIN OF CHRONIC PAIN AND WHEN PAIN MEDICATION WOULD BE GIVEN. HE DENIED MEDICAL CONCERNS WITH NO S/S OF DISTRESS AT TIME OF ASSESSMENT. NURSING WILL MAINTAIN ALL PRECAUTIONS TO ENSURE SAFETY AT ALL TIMES.
[2018-10-27 02:20] VITALS: BP 116/74
[2018-10-27 08:46] VITALS: BP 132/84
[2018-10-27 08:50] VITALS: BP 132/84
--- NOTE | 2018-10-27 17:05 | NUR ---
FELIX met with Edenilson concerning pt been d/c on October 28, 2018. FELIX will follow-up with pt upon d/c.
--- NOTE | 2018-10-27 17:22 | NUR ---
ASSUMED CARE OF PT AT 0715. PT IS A&OX4 AND VITAL SIGNS ARE STABLE. +2 PITTING EDEMA BILATERALLY TO LOWER EXTREMITIES, PT REFUSES LEONARDO HOSE. INCONTINENT OF BLADDER THIS SHIFT. REPORTS PAIN 6-7/10 IN HIS BACK WHICH WAS SUCCESSFULLY TREATED WITH ORAL MEDICAITONS. PATIENT NON-COMPLIANT WITH ALL MEDICATIONS AND WAS FOUND TO BE POCKETING BOWEL MEDICATIONS. PT UP IN W/C FOR ALL MEALS AND COMPLIANT WITH GROUP. FALL AND SAFETY PRECAUTIONS IN PLACE AND NURSING WILL CONTINUE TO MONITOR PATIENT.
--- NOTE | 2018-10-27 18:26 | NUR ---
VISITORS THIS EVENING TOOK PT PHONE HOME WITH THEM.
[2018-10-27 19:58] VITALS: BP 124/79
--- NOTE | 2018-10-27 23:13 | NUR ---
NURSES NOTE - ASSUMED CARE AT 1900. UPON INITIAL GREETING PATIENT IN BED WITH EYES OPEN, APPEARS TO BE LAYING COMFORTABLY NO COMPLAINTS OF PAIN OR DISTRESS. REQUESTS FOR DRINK MADE AND GIVEN TO PATIENT. HE REPORTS TO THIS NURSE THAT HE IS LOOKING FORWARD TO DISCHARGE TO HIS NEW FACILITY. HE DID REVEAL SKEPTICISM REGARDING TAIWO HIS DPOA. HE WOULD NOT FURTHER ELABORATE BUT THIS NURSE DID ASK ABOUT ABUSE/EXPLOITATION WITH PATIENT, WHICH HE DENIED. HE DENIES SI HI AND DEPRESSION AND ANXIETY COCCYX WOUND COVERED AND IN PLACE. IT WAS REPORTED TO THIS NURSE DRESSING WAS CHANGED TODAY. NO S/S OF INFXN NOTED. NO MEDICAL DISTRESS NOTED. WILL CONTINUE TO MAINTAIN ALL PRECAUTIONS TO ENSURE SAFETY AT ALL TIMES.
[2018-10-28 05:32] LABS: HEMATOCRIT 34.7 % (42.0-52.0); HEMOGLOBIN 11.4 gm/dL (14.0-18.0); MCH 27.8 pg (26.0-34.0); MCHC 32.8 g/dL (28.0-37.0); MCV 84.8 fL (80.0-100.0); PLATELET COUNT 238 thou/uL (150-400); RBC 4.08 mil/uL (4.50-6.00); RDW 14.1 % (10.5-14.5); WBC 6.7 thou/uL (4.0-11.0)
[2018-10-28 05:45] LABS: CALCIUM 8.8 mg/dL (8.5-10.1); CREATININE 0.8 mg/dL (0.7-1.3); MAGNESIUM 2.6 mg/dL (1.8-2.4)
[2018-10-28 06:16] LABS: ABSOLUTE NEUTROPHILS 3.9 thou/uL (1.4-8.2); PLATELET ESTIMATE NORMAL
--- NOTE | 2018-10-28 09:35 | NUR ---
0700: Report rec from noc shift, care assumed 0745: Pt resting supine in bed, bed in low position and locked. Pt incont of urine, darvin care given. Assited to w/c with 2 staff and walker, pt steady with transfer. 2+ edema noted to BLE, cont. on daily Lasix 20mg po. Feeds self, appetite good, takes meds whole w/o difficulty.
[2018-10-28] MEDS ORDERED: OXYCODONE HCL 55 MG PO (12:17)
[2018-10-28] MEDS ORDERED: HALOPERIDOL 5 MG5 MG PO (12:18)
[2018-10-28] MEDS ORDERED: MS CONTIN15 MG PO (12:18)
[2018-10-28] MEDS ORDERED: LASIX 20 MG TAB20 MG PO (12:19)
[2018-10-28] MEDS ORDERED: COLACE 100 MG100 MG PO (12:19)
[2018-10-28] MEDS ORDERED: FOLIC ACID1 MG PO (12:20)
[2018-10-28] MEDS ORDERED: VITAMIN B-12500 MCG PO (12:20)
[2018-10-28 13:53] VITALS: BP 125/77
--- NOTE | 2018-10-28 14:26 | NUR ---
Patient Name: NIURKA REHMAN Admission Date: 10/16/18 DISCHARGE PLAN: Pt will be d/c to [facility]. Care Assessment: Pt was assessed by Dr. Lee, and diagnosed with Major Neurocognitive Disorder and Schizophrenia. Level II Assessment: None Transportation: Pt will be transported by [facility] Special Instructions/Notes: Pt will need a memory care unit. DISCHARGE TO FACILITY: Memory Care unit Facility: [facility] Fax: Address: [address] [place] [address] Contact Name: Cherelle PCP: [place] Psychiatrist: [facility] Psychiatrist.
== END 2018-10-28 14:50 | DRG 885 ==
LOC: ER 11:24 → EROBS 16:17 → SBH 16:17
PROVIDERS: Emergency Medicine; Hospitalist; Nurse Practitioner; Nurse Practitioner Psychiatric/Mental Health; ADMIT Psychiatry & Neurology Psychiatry
DX: F25.9 Schizoaffective disorder, unspecified (principal); F11.20 Opioid dependence, uncomplicated; G93.40 Encephalopathy, unspecified; F01.50 Vascular dementia, unspecified severity, without behavioral disturbance, psychotic disturbance, mood disturbance, and anxiety; F22 Delusional disorders; R03.0 Elevated blood-pressure reading, without diagnosis of hypertension; R80.9 Proteinuria, unspecified; E53.8 Deficiency of other specified B group vitamins; K59.00 Constipation, unspecified; G89.4 Chronic pain syndrome; Z91.14 Patient's other noncompliance with medication regimen; Z79.899 Other long term (current) drug therapy
CPT/HCPCS: 10880

== ENCOUNTER 2019-10-13 16:40 | Inpatient (IN) | payer OTHER ==
[~2019-10-13] VITALS: Ht 185.4 cm; Wt 107.5 kg
--- NOTE | ~2019-10-13 | EKG ---
[facility] [place] [address] ELECTROCARDIOGRAM REPORT Name: NIURKA REHMAN Room #: [facility] ADM IN M.R.#: [id number] Admission: 10/13/19 Attend Phys: Malcolm Lee DO Discharge: Date of : 54 Report #: [id number] THIS REPORT FOR: cc: FAM - Family physician unknown FAM - Family physician unknown Luis Alberto Sahu MD ~ THIS REPORT FOR: //name// [facility] ED Test Date: 2019-10-13 Test Time: 17:41:32 Pat Name: NIURKA REHMAN Department: Room: [facility] Gender: M Director Of Recruitment And Admissions: margy whitten : 1950 Requested By: Artur Araiza Order Number: [id number] MD: Measurements Intervals Balm Rate: 110 P: -44 MN: 123 QRS: 4 QRSD: 131 T: 22 QT: 427 QTc: 578 Interpretive Statements Sinus rhythm Poor R wave progression Artifact in multiple lead(s) Compared to ECG 10/17/2018 09:14:13 No significant change was found Electronically Signed On 10-14-2019 7:36:49 CDT by Garret Elizabeth [email or web address] By: 40 40 Epiphany Epiphany, /ANIBAL
[~2019-10-13 16:40] MED LIST: COLACE 100 MG100 MG PO; FOLIC ACID1 MG PO; HALOPERIDOL 5 MG5 MG PO; LASIX 20 MG TAB20 MG PO; MILK OF MA400 MG/5 M PO; MIRALAX17 GM PO; MS CONTIN15 MG PO; OXYCODONE HCL 55 MG PO; OXYCODONE HCL10 MG PO; SENNA8.6 MG PO; SYSTANE ULTRA 010 ML OPHTHALMIC; VALIUM5 MG PO; VITAMIN B-12500 MCG PO
[2019-10-13 16:57] VITALS: BP 161/99
[2019-10-13] MEDS ORDERED: LORAZEPAM 0.50.5 MG PO (17:18)
[2019-10-13] MEDS ORDERED: OXYCODONE HCL 55 MG PO (17:19)
[2019-10-13] MEDS ORDERED: ACETAMINOPHEN325 M1 PO (17:21)
[2019-10-13 17:26] LABS: URINE BILIRUBIN NEGATIVE (Negative); URINE BLOOD NEGATIVE (Negative); URINE CLARITY CLEAR; URINE COLOR YELLOW; URINE GLUCOSE-RANDOM* NEGATIVE (Negative); URINE KETONES TRACE (Negative); URINE LEUKOCYTES-REFLEX NEGATIVE (Negative); URINE NITRITE-REFLEX NEGATIVE (Negative); URINE PROTEIN (DIPSTICK) TRACE (Negative)
[2019-10-13 17:36] LABS: AMP/METHAMP Negative (Negative); BARBITURATES Negative (Negative); BENZODIAZEPINES Negative (Negative); COCAINE Negative (Negative); METHADONE Negative (Negative); OPIATES POSITIVE (Negative); PCP Negative (Negative)
[2019-10-13 18:08] LABS: ABSOLUTE NEUTROPHILS 5.1 thou/uL (1.4-8.2); BASOPHILS 0.8 % (0.0-2.0); EOSINOPHILS 0.9 % (0.0-3.0); HEMATOCRIT 42.1 % (42.0-52.0); HEMOGLOBIN 14.1 gm/dL (14.0-18.0); LYMPHOCYTES 19.3 % (24.0-44.0); MCH 29.6 pg (26.0-34.0); MCHC 33.6 g/dL (28.0-37.0); MCV 88.3 fL (80.0-100.0); PLATELET COUNT 222 thou/uL (150-400); RBC 4.77 mil/uL (4.50-6.00); WBC 7.4 thou/uL (4.0-11.0)
[2019-10-13 18:16] LABS: ANION GAP 7 mmol/L (7-16); BUN 14 mg/dL (7-18); CALCIUM 9.2 mg/dL (8.5-10.1); CHLORIDE 99 mmol/L (98-107); CO2 30 mmol/L (21-32); GLUCOSE 99 mg/dL (74-106); SODIUM 136 mmol/L (136-145)
[2019-10-13 18:26] LABS: MAGNESIUM 2.4 mg/dL (1.8-2.4); SALICYLATE < 2.8 mg/dL (2.8-20.0); SGOT 19 U/L (15-37); SGPT 22 U/L (30-65); TOTAL BILIRUBIN 0.7 mg/dL (0.2-1.0); TROPONIN-I <0.06 ng/mL (<0.06)
[2019-10-13 19:08] VITALS: BP 145/91
[2019-10-13 19:54] VITALS: BP 165/97
[2019-10-13 22:03] VITALS: BP 155/86
--- NOTE | 2019-10-14 07:42 | EKG ---
[facility] [place] [address] ELECTROCARDIOGRAM REPORT Name: NIURKA REHMAN Room #: 520B-B ADM IN M.R.#: [id number] Admission: 10/13/19 Attend Phys: Malcolm Lee DO Discharge: Date of : 54 Report #: [id number] THIS REPORT FOR: cc: FAM - Family physician unknown FAM - Family physician unknown Garret Elizabeth MD [facility] THIS REPORT FOR: //name// [facility] ED Test Date: 2019-10-13 Test Time: 17:41:32 Pat Name: NIURKA REHMAN Department: Room: Gender: Public Policy Associate: margy maria dolores : 1950 Requested By: Artur Araiza Order Number: [id number] MD: Garret Elizabeth Measurements Intervals [place] Rate: 110 P: -44 PA: 123 QRS: 4 QRSD: 131 T: 22 QT: 427 QTc: 578 Interpretive Statements Sinus rhythm Poor R wave progression Artifact in multiple lead(s) Compared to ECG 10/17/2018 09:14:13 No significant change was found Electronically Signed On 10-14-2019 7:36:49 CDT by Garret Elizabeth [email or web address] <ELECTRONICALLY SIGNED> By: Garret Elizabeth MD, [facility] 10/14/19 0736 1741 1741 Garret Elizabeth MD, [facility] /EPI
[2019-10-14 10:05] VITALS: BP 161/97
[2019-10-14 13:21] LABS: FOLIC ACID 65.1 ng/mL (8.6-58.9)
[2019-10-14 19:37] VITALS: BP 113/71
[2019-10-14 20:00] VITALS: BP 113/71
[2019-10-15 19:37] VITALS: BP 138/87
[2019-10-16 08:34] VITALS: BP 134/86
[2019-10-16 09:26] VITALS: BP 134/86
[2019-10-16 19:45] VITALS: BP 156/101
[2019-10-17 09:06] VITALS: BP 168/101
[2019-10-17 10:04] VITALS: BP 168/101
[2019-10-17 20:06] VITALS: BP 126/73
[2019-10-18 07:30] VITALS: BP 147/86
[2019-10-18 13:07] LABS: ABSOLUTE NEUTROPHILS 5.3 thou/uL (1.4-8.2); BASOPHILS 0.8 % (0.0-2.0); EOSINOPHILS 1.1 % (0.0-3.0); HEMATOCRIT 47.1 % (42.0-52.0); HEMOGLOBIN 15.5 gm/dL (14.0-18.0); LYMPHOCYTES 23.5 % (24.0-44.0); MCH 29.7 pg (26.0-34.0); MCV 90.1 fL (80.0-100.0); PLATELET COUNT 245 thou/uL (150-400); POLYS 63.6 % (36.0-66.0); RBC 5.23 mil/uL (4.50-6.00); RDW 14.2 % (10.5-14.5); WBC 8.4 thou/uL (4.0-11.0)
[2019-10-18 13:23] LABS: ALBUMIN 4.4 g/dL (3.4-5.0); CREATININE 0.9 mg/dL (0.7-1.3); POTASSIUM 4.8 mmol/L (3.5-5.1); TOTAL BILIRUBIN 0.6 mg/dL (0.2-1.0); TOTAL PROTEIN 7.7 g/dL (6.4-8.2)
[2019-10-18 14:21] LABS: FOLIC ACID 70.7 ng/mL (8.6-58.9)
[2019-10-18 20:00] VITALS: BP 147/86
[2019-10-19 11:35] VITALS: BP 143/89
[2019-10-19 19:38] VITALS: BP 135/81
[2019-10-19 22:00] VITALS: BP 135/81
[2019-10-20 09:20] VITALS: BP 139/87
--- NOTE | 2019-10-20 12:02 | HC ---
[facility] [place] [address] CONSULTATION Name: NIURKA REHMAN Room #: 520B-B ADM IN M.R.#: [id number] Admission: 10/13/19 Attend Phys: Malcolm Lee DO Discharge: Date of : 54 Report #: [id number] THIS REPORT FOR: cc: [facility] - Family physician unknown FAM - Family physician unknown Shadi Penn MD ~ CC: Malcolm Lee [facility] unknown REQUESTING PHYSICIAN: Dr. Malcolm Lee. HISTORY OF PRESENT ILLNESS: This is a 69-year-old male patient who is difficult to evaluate. He has a significant psychiatric history and he is here for psychiatric disturbances. Neurology consultation was requested for left leg weakness and paraesthesia. As I understand from Dr. Lee, the family wanted this evaluation done. The patient himself wants this evaluation done. He is pretty concerned and merritt paranoid and is a difficult evaluation. He says it is going on for about 2 years. There was some wound on his back, which he developed after hospitalization and he thinks that they did the debridement too much and he started having left-sided weakness. It is in the leg. I do not know how much it has changed. The leg is discolored. REVIEW OF SYSTEMS: He has a chronic pain and the record indicates that he has narcotic use. 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 He said he was going to fly to [facility] to have a surgery done for his synovial cyst. He did not answer when I asked him why does he has to go all the way to [facility] to get the surgery done. He said as a preparation to go to [facility], he learned various forms of [place] treating, which actually he does reasonably well. He says he does have a history of hypertension. He has generalized weakness and he has pretty aggressive behavior. That is all the 14-point review of system, which I could do in this patient. The record indicates that he also has some B12 deficiency with B12 in 180s at one time. He had a schizoaffective disorder and has a history of dementia, but does not look like he had any formal neuropsychological testing. PAST MEDICAL HISTORY: Positive for major psychiatric problem and the leg weakness, which is going on the left side for at least 2 years and may be longer. FAMILY HISTORY: Unremarkable. PHYSICAL EXAMINATION: Pretty limited because of the above described reason, but he is alert. He is responsive. He can talk. His speech looks intact. Memory is hard to tell because I do not know what his baseline is. His cranial nerve examination mostly looks unremarkable. I did not see any nystagmus. He moves all 4 extremities. He is weak in the left lower extremity. His reflexes are diminished in the left leg compared to the right leg, especially the knee allie, [facility] [address] [facility] [place] [address] CONSULTATION Name: NIURKA REHMAN Room #: 520B-B ADM IN M.R.#: [id number] Admission: 10/13/19 Attend Phys: Malcolm Lee DO Discharge: Date of : 54 Report #: [id number] when I tried to do the position sense, he did not do very well on the left side, but I do not know how much it was voluntary. I could not look at the fundus. There is no meningeal sign. There is no carotid bruit. He is reasonably well-developed individual whose hearing and vision looks adequate. His blood pressure is 135/81, respiration is 16, pulse is 69, and temperature is 97.5. LABORATORY DATA: His last WBC count was normal. IMPRESSION: Pretty difficult to form in this patient. He does have left leg weakness and I suspect it is real because his reflexes are also asymmetrical. It is going on for at least 2 years or longer and hence it will be difficult to find a treatable cause for that, but I think we should look for it. His psychiatric issue is going to be problem with his evaluation. I talked to him and he agreed that we will do an MRI of the lumbar spine. Until that shows some abnormality, which can explain his symptoms, his workup most likely is going to be as an outpatient and difficult at best. His chronic narcotic use and drug seeking behavior is going to be even further problem as he may use any organic pathology we may find to fulfill that needs. Thank you very much for this referral. I will look at the MRI and the rest of the workup may have to be done as an outpatient. Thank you very much for this referral. <ELECTRONICALLY SIGNED> By: Shadi Penn MD 10/20/19 1202 55 24 Shadi Penn MD /nt
[2019-10-20 20:12] VITALS: BP 123/85
[2019-10-20 21:00] VITALS: BP 123/85
[2019-10-21] MEDS ORDERED: MS CONTIN15 MG PO (10:23)
[2019-10-21] MEDS ORDERED: HALOPERIDOL 5 MG5 MG PO (10:24)
[2019-10-21] MEDS ORDERED: HALOPERIDOL5 MG/1 ML IM (10:24)
[2019-10-21 14:34] VITALS: BP 123/85
--- NOTE | 2019-10-23 16:08 | D ---
[facility] [place] [address] DISCHARGE SUMMARY Name: NIURKA REHMAN Room #: 520B-B DIS IN M.R.#: [id number] Admission: 10/13/19 Attend Phys: Malcolm Lee DO Discharge: 10/21/19 Date of : 54 Report #: [id number] THIS REPORT FOR: cc: DIAMANTE - Family physician unknown FAM - Family physician unknown Malcolm Lee DO ~ THIS REPORT FOR: //name// CC: Malcolm BOBBY unknown DATE OF SERVICE: 10/21/2019 INPATIENT PSYCHIATRIC DISCHARGE SUMMARY ATTENDING PSYCHIATRIST: Malcolm Lee DO. DEVELOPMENT GEOLOGIST AT THE TIME OF DISCHARGE: Malcolm Lim MD DISCHARGE DIAGNOSES: Schizoaffective disorder, improved; major neurocognitive disorder, unspecified. Medical comorbidities are as follows and include chronic pain disorder, lumbar stenosis, gait impairment, left shoulder pain. DIET: Regular diet. ACTIVITY LEVEL: As tolerated. The patient requires 24/7 assistance and supervision. DISCHARGE MEDICATIONS: Morphine sulfate ER 15 mg p.o. b.i.d., Haldol 2.5 mg p.o. b.i.d. for psychosis and mood stabilization. Recommend backing it up with injectable Haldol; however, currently the guardian does not have a forced medication provision in his [facility]. I will be providing him a letter recommending that, Systane eye drops one drop every 6 hours p.r.n. for dry eyes, senna 8.6 mg p.o. b.i.d., docusate 100 mg p.o. b.i.d., folic acid 1 mg p.o. daily for supplementation. DISCHARGE PLAN: The patient is discharging to [facility] for long-term care. Psychiatric and medical care to be performed by the receiving facility. REASON FOR ADMISSION: Back on the or so a 69-year-old male who resides at [facility], [facility]. Apparently, he had become increasingly aggressive, delusional, complains of paresthesias in his left leg as well. He has been trying to scratch and bite staff in a nursing facility and EMS. [facility] [address] [place] [address] DISCHARGE SUMMARY Name: NIURKA REHMAN Room #: 520B-B DIS IN M.R.#: [id number] Admission: 10/13/19 Attend Phys: Malcolm Lee DO Discharge: 10/21/19 Date of : 54 Report #: [id number] HOSPITAL COURSE: The patient was admitted to the Geriatric Psychiatry Unit. The patient had been here about a year prior. He has known personality features that are manipulative and disruptive side. 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 I was on vacation the first part of his stay. He had become noncompliant with the Depakote. I discontinued that and was switched to Haldol regimen with IM backup. He was somewhat compliant with medication; however, with things like an EKG as we wanted to follow his QTC since that had been recorded 578 in the ER, he was noncompliant, so I did not increase the dose of Haldol given this. The patient slept well, ate well, remained manipulative and oppositional to therapeutic goals including asking help for physical effort when he did not need it, so forth. CONDITION AT DISCHARGE: Stable. He did have a conversation with his guardian, strongly recommended he pursue forced medication provision. PHYSICAL EXAMINATION: VITAL SIGNS: On the day of discharge, temperature 36.8, pulse 67, respirations 18, BP 123/85, O2 sat 95%. LABORATORY DATA: This admission, CBC: White count 8.4, H and H 15.5 and 47.1, platelet count 245. Chemistries within normal limits except glucose 114, ALT 22. Ammonia was noted to be 78 on 10/18/2019. Interestingly that is without Depakote, so I think there is some chronic impairment. His B12 was 254, deferring replacement on that to nursing facility given his knack for refusing medications. Folate was actually high- but is water soluble vitamin so, level should be monitored if supplement discontinued. . COVID-19 PCR was negative. HOSPITAL COURSE: The patient really stayed pretty static condition diop and better nourished , he was not physically aggressive during his stay, which was the main reason he was sent here from nursing facility. Discussed this case with Edilia at [facility], who additionally requested authorization for forced medication. On the day of discharge, he was not suicidal or homicidal. He was oriented to place, grossly to time. Physical exam, wheelchair bound. MENTAL STATUS EXAMINATION: This is a well-developed male apparently stated age. Attention fair. Concentration fair. Speech at times selectively mute. No psychomotor agitation. No psychomotor retardation. Thought process, linear and goal oriented. Thought content, often complaining of pain when he realistically did not have objective signs of pain. Mood and affect constricted, congruent, irritable at times. Insight limited. Judgment limited. Memory not formally tested. Fund of knowledge at least average. [facility] [address] [place] [address] DISCHARGE SUMMARY Name: NIURKA REHMAN Room #: 520B-B DIS IN M.R.#: [id number] Admission: 10/13/19 Attend Phys: Malcolm Lee, DO Discharge: 10/21/19 Date of : 54 Report #: [id number] PROGNOSIS: For this patient is guarded to poor given the fact of him difficulty being managed and the lack of forced medication provision will give opportunities for decompensation. <ELECTRONICALLY SIGNED> By: Malcolm Lee DO 10/23/19 1608 17 2108 Malcolm Lee DO /nt
== END 2019-10-21 14:10 | DRG 885 ==
LOC: ER 16:40 → SBH 19:15
PROVIDERS: Emergency Medicine; Internal Medicine; Psychiatry & Neurology Psychiatry; ADMIT Psychiatry & Neurology Psychiatry; ATTEND Psychiatry & Neurology Psychiatry
DX: F25.9 Schizoaffective disorder, unspecified (principal); F01.51 Vascular dementia, unspecified severity, with behavioral disturbance; G93.40 Encephalopathy, unspecified; F41.1 Generalized anxiety disorder; F11.90 Opioid use, unspecified, uncomplicated; G89.29 Other chronic pain; E53.8 Deficiency of other specified B group vitamins; K59.09 Other constipation; E66.9 Obesity, unspecified; M47.9 Spondylosis, unspecified; Z20.828 Contact with and (suspected) exposure to other viral communicable diseases; Z68.31 Body mass index [BMI] 31.0-31.9, adult; Z79.899 Other long term (current) drug therapy
CPT/HCPCS: 10880